=== PATIENT | female | born 1985 | race African-American/Black ===

== ENCOUNTER 2017-01-06 02:00 | Emergency (ER) | payer OTHER ==
[2017-01-06 02:24] VITALS: BMI 39.5
[2017-01-06] MEDS ORDERED: ACETAMINOPHEN 500 MG TABLET (FP) PO ONE (03:32)
[2017-01-06] MEDS ORDERED: ACETAMINOPHEN 325 MG TABLET (FP) ONE (04:34)
--- NOTE | 2017-01-06 04:53 | PDOC ---
History of Present Illness - General Chief Complaint: Vaginal Bleeding Stated Complaint: CRAMPING/BLEEDING(6WEEKS) Time Seen by Provider: 01/06/17 03:35 - History of Present Illness Initial Comments: 01/06/17 04:51 "The patient is a 31 year old female, , with a significant past medical history of chlamydia (treated 8 years ago), who presents to the emergency department with vaginal spotting and mild abdominal cramping for two weeks. She reports having a positive at [facility] a couple of days ago . She reports she is 6 weeks since her LMP (11/23/16). She states she had been spotting lightly for about a week until today when she noticed heavier bleeding. She reports her cramps were intermittent, 5/10 in severity and localized to her suprapubic region until about 3 days ago when her pain became constant and focused on the left suprapubic region. She denies chest pain, shortness of breath, headache and dizziness. She denies fever, chills, nausea, vomit, diarrhea and constipation. She denies dysuria, frequency, urgency and hematuria. Allergies: NKDA " Past History - Past Medical History Allergies/Adverse Reactions: Allergies Allergy/AdvReac Type Severity Reaction Status Date / Time No Known Allergies Allergy Verified 01/06/17 02:11 Other medical history: denies - Psycho/Social/Smoking Cessation Hx Suicidal Ideation: No Smoking History: Never smoked Review of Systems - Review of Systems Comments:: 01/06/17 04:52 """GENERAL/CONSTITUTIONAL: No fever or chills. No weakness. HEAD, EYES, EARS, NOSE AND THROAT: No change in vision. No ear pain or discharge. No sore throat. CARDIOVASCULAR: No chest pain or shortness of breath. RESPIRATORY: No cough, wheezing, or hemoptysis. GASTROINTESTINAL: No nausea, vomiting, diarrhea or constipation. GENITOURINARY: No dysuria, frequency, or change in urination. REPRODUCTIVE: (+) vaginal bleeding MUSCULOSKELETAL: No joint or muscle swelling or pain. No neck or back pain. SKIN: No rash NEUROLOGIC: No headache, vertigo, loss of consciousness, or change in strength/ sensation. ENDOCRINE: No increased thirst. No abnormal weight change. HEMATOLOGIC/LYMPHATIC: No anemia, easy bleeding, or history of blood clots. ALLERGIC/IMMUNOLOGIC: No hives or skin allergy. """ *Physical Exam - Vital Signs Last Vital Signs Temp Pulse Resp BP Pulse Ox 98.6 F 96 H 18 138/78 99 01/06/17 02:08 01/06/17 02:08 01/06/17 02:08 01/06/17 02:08 01/06/17 02:08 - Physical Exam Comments: 01/06/17 04:52 """GENERAL: Awake, alert, and fully oriented, in no acute distress HEAD: No signs of trauma EYES: PERRLA, EOMI, sclera anicteric, conjunctiva clear ENT: Auricles normal inspection, hearing grossly normal, nares patent, oropharynx clear without exudates. Moist mucosa NECK: Normal ROM, supple, no lymphadenopathy, JVD, or masses LUNGS: Breath sounds equal, clear to auscultation bilaterally. No wheezes, and no crackles HEART: Regular rate and rhythm, normal S1 and S2, no murmurs, rubs or gallops ABDOMEN: Soft, nontender, normoactive bowel sounds. No guarding, no rebound. No masses EXTREMITIES: Normal range of motion, no edema. No clubbing or cyanosis. No cords, erythema, or tenderness NEUROLOGICAL: Cranial nerves II through XII grossly intact. Normal speech, normal gait SKIN: Warm, Dry, normal turgor, no rashes or lesions noted. VAGINAL: (+) blood in vaginal vault, cervical Os is closed, left adnexal ttp""" ED Treatment Course - LABORATORY CBC & Chemistry Diagram: 01/06/17 05:00 01/06/17 05:00 - RADIOLOGY Radiology Studies Ordered: Category Date Time Status TRANSVAGINAL ULTRASOUND US [US] Stat Ultrasound 01/06/17 04:50 Ordered - Medications Given in the ED: ED Medications Discontinued Medications Generic Name Dose Route Start Last Admin Trade Name Freq PRN Reason Stop Dose Admin Acetaminophen 1,000 mg 01/06/17 03:32 01/06/17 04:35 Tylenol - PO 01/06/17 03:33 Not Given ONCE ONE Medical Decision Making - Medical Decision Making 01/06/17 04:53 31 F with + outpt UPT, presenting with vaginal bleeding and suprapubic cramping. Concerning for ectopic vs spontaneous . - Labs, HCG, UA - TVUS 01/06/17 06:19 HCG 300, below discriminatory zone. Pt blood type O+. Disposition pending TVUS, to be followed up by day team. *DC/Admit/Observation/Transfer Diagnosis at time of Disposition: Vaginal bleeding in
[2017-01-06 05:08] LABS: BASOPHIL 0.9 % (0-2.0); MCH 26.9 pg (25.7-33.7); MCHC 33.1 g/dl (32.0-36.0); MEAN CELL VOLUME 81.4 fl (80-96); MEAN PLT VOLUME 7.4 fl (7.5-11.1); NEUTROPHILS 68.3 % (42.8-82.8); PLATELET COUNT 260 K/MM3 (134-434); RDW 14.7 % (11.6-15.6); WHITE BLOOD COUNT 9.4 K/mm3 (4.0-10.0)
[2017-01-06 05:19] LABS: URINE APPEARANCE CLOUDY; URINE BILIRUBIN NEGATIVE (NEGATIVE); URINE BLOOD 3+ (NEGATIVE); URINE COLOR RED; URINE GLUCOSE (UA) NEGATIVE (NEGATIVE); URINE KETONE TRACE (NEGATIVE); URINE LEUK ESTERASE TRACE (NEGATIVE); URINE NITRITE NEGATIVE (NEGATIVE); URINE UROBILINOGEN NEGATIVE mg/dL (0.2-1.0)
[2017-01-06 05:21] LABS: URINE PROTEIN 2+ (NEGATIVE)
[2017-01-06 05:23] LABS: URINE MUCUS MANY; URINE RBC 4036 /hpf (0-3); URINE WBC 12 /hpf (3-5)
[2017-01-06 05:28] LABS: ANION GAP 10 (8-16); BILIRUBIN,TOTAL 0.5 mg/dL (0.2-1.0); CALCIUM 9.2 mg/dL (8.5-10.1); CO2 25 mmol/L (21-32); CREATININE 0.7 mg/dL (0.55-1.02); GLUCOSE,RANDOM 99 mg/dL (74-106); SGOT/AST 13 U/L (15-37); SGPT/ALT 24 U/L (12-78); TOT PROT 7.6 g/dl (6.4-8.2)
[2017-01-06 05:31] LABS: ALK PHOS 59 U/L (45-117)
[2017-01-06 06:56] VITALS: PULSE 71
--- NOTE | 2017-01-06 09:49 | PDOC ---
*Physical Exam - Vital Signs Last Vital Signs Temp Pulse Resp BP Pulse Ox 98.3 F 71 14 140/78 96 01/06/17 05:10 01/06/17 06:56 01/06/17 06:56 01/06/17 06:56 01/06/17 06:56 ED Treatment Course - LABORATORY CBC & Chemistry Diagram: 01/06/17 05:00 01/06/17 05:00 - ADDITIONAL ORDERS Additional order review: Laboratory Results 01/06/17 01/06/17 01/06/17 05:00 05:00 05:00 Sodium 140 Potassium 3.9 Chloride 105 Carbon Dioxide 25 Anion Gap 10 BUN 8 Creatinine 0.7 Creat Clearance w eGFR > 60 Random Glucose 99 Calcium 9.2 Total Bilirubin 0.5 AST 13 L ALT 24 Alkaline Phosphatase 59 Total Protein 7.6 Albumin 4.0 Beta HCG, Quant 305.9 Urine Color Red Urine Appearance Cloudy Urine pH 5.0 Urine Protein 2+ H Urine Glucose (UA) Negative Urine Ketones Trace H Urine Blood 3+ H Urine Nitrite Negative Urine Bilirubin Negative Urine Urobilinogen Negative Ur Leukocyte Esterase Trace Urine RBC 4036 Urine WBC 12 Ur Epithelial Cells Rare Urine Mucus Many Blood Type O POSITIVE Antibody Screen Negative 01/06/17 05:00 RBC 4.66 MCV 81.4 MCHC 33.1 RDW 14.7 MPV 7.4 L Neutrophils % 68.3 Lymphocytes % 23.2 Monocytes % 6.6 Eosinophils % 1.0 Basophils % 0.9 - Medications Given in the ED: ED Medications Discontinued Medications Generic Name Dose Route Start Last Admin Trade Name Freq PRN Reason Stop Dose Admin Acetaminophen 1,000 mg 01/06/17 03:32 01/06/17 04:35 Tylenol - PO 01/06/17 03:33 Not Given ONCE ONE Medical Decision Making - Medical Decision Making 01/06/17 09:56 Sono results d/w patient. Counseled her to f/u with passenger elevator operator in 48 hours (or return to ED for repeat B-HCG). She states the bleeding has significantly decreased and denies any pain. Stable for DC home. *DC/Admit/Observation/Transfer Diagnosis at time of Disposition: Vaginal bleeding in , Miscarriage - Discharge Dispostion Disposition: HOME Condition at time of disposition: Stable Admit: No - Referrals Referrals: Nanette Torres [Primary Care Provider] - - Patient Instructions Printed Discharge Instructions: DI for Miscarriage Additional Instructions: FOLLOW UP WITH YOUR ADJUNCT SOCIOLOGY PROFESSOR WITHIN 48 HOURS (OR RETURN TO THE ER FOR REPEAT BLOODWORK). IF YOU HAVE SEVERE PAIN, HEAVY BLEEDING, OR ANY OTHER CONCERNS, RETURN TO THE ER IMMEDIATELY. - Post Discharge Activity
[2017-01-06 10:03] VITALS: BP 104/71; TEMP 98.1
== END 2017-01-06 10:03 | disposition home or self-care (01) ==
LOC: JER 02:00
DX: O02.1 Missed abortion (principal); Z3A.01 Less than 8 weeks gestation of pregnancy
CPT/HCPCS: 36415; 76830-TC; 80053; 81003; 81015; 84702; 85025; 86850; 86900; 86901; 99283-25